=== PATIENT | female | born 2005 | race Asian ===

== ENCOUNTER 2023-02-06 10:06 | Emergency (ER) | payer OTHER ==
[~2023-02-06] VITALS: Ht 157.5 cm; Wt 61.8 kg
[2023-02-06] MEDS ORDERED: TIZA2CAP PO (10:14)
[2023-02-06] MEDS ORDERED: MELO15TA28 PO (10:14)
[2023-02-06 10:34] LABS: BASO # 0.1 10^3/uL (0.0-0.2); BASO % 0.7 % (0.0-1.0); EOS # 0.1 10^3/uL (0.0-0.5); HEMATOCRIT 40.3 % (36.0-47.0); HEMOGLOBIN 13.4 g/dl (12.0-15.5); LYMPH # 1.3 10^3/uL (1.5-5.0); LYMPH % 18.1 % (24.0-44.0); MEAN CORPUSCULAR HEMOGLOBIN 29.3 pg (27.0-33.0); MEAN CORPUSCULAR HGB CONC 33.3 g/dl (32.0-36.5); MEAN CORPUSCULAR VOLUME 88.2 fl (80.0-96.0); MONO # 0.3 10^3/uL (0.0-0.8); MONO % 3.8 % (2.0-8.0); NEUTROPHILS # 5.6 10^3/uL (1.5-8.5); PLATELET COUNT, AUTOMATED 311 10^3/uL (150-450); RED BLOOD COUNT 4.57 10^6/uL (4.00-5.40); WHITE BLOOD COUNT 7.4 10^3/uL (4.0-10.0)
[2023-02-06 11:00] LABS: BLOOD UREA NITROGEN 9 MG/DL (9-23); CALCIUM LEVEL 8.7 MG/DL (8.5-10.1); CARBON DIOXIDE LEVEL 27 MMOL/L (20-31); CHLORIDE LEVEL 106 MMOL/L (98-107); CREATININE FOR GFR 0.62 MG/DL (0.55-1.30); GLUCOSE, FASTING 89 MG/DL (60-100); POTASSIUM SERUM 3.8 MMOL/L (3.5-5.1); SODIUM LEVEL 141 MMOL/L (136-145)
[2023-02-06] MEDS ORDERED: ONDANSETRON 4MG 2ML VIAL IV ONE (12:25)
[2023-02-06] MEDS ORDERED: MORPHINE 2 MG/ML 1ML VIAL IV ONE (12:25)
[2023-02-06] MEDS ORDERED: PERCOCET 5MG/325MG TAB PO ONE (12:30)
[2023-02-06] MEDS ORDERED: ONDANSETRON 4MG ORAL DISINTEGRATING TAB PO ONE (12:30)
[2023-02-06 13:54] LABS: GC DNA AMPLIFICATION NEGATIVE (NEGATIVE)
[2023-02-06] MEDS ORDERED: BACTRIM 160MG/800MG DS TAB PO ONE (14:15)
[2023-02-06] MEDS ORDERED: BACT800T5 PO (14:15)
[2023-02-06 14:20] VITALS: BP 110/58
== END 2023-02-06 14:28 | disposition home or self-care (01) ==
LOC: M ED 10:06
DX: N39.0 Urinary tract infection, site not specified (principal); R10.9 Unspecified abdominal pain; N93.9 Abnormal uterine and vaginal bleeding, unspecified